=== PATIENT | male | born 1965 | race Caucasian/White ===

== ENCOUNTER 2020-08-29 10:27 | Outpatient (CLI) | payer OTHER, SELFPAY | END 2020-08-29 10:28 | disposition home or self-care (01) | LOC: CHSCOVIDVC 10:27 | PROVIDERS: PCP Internal Medicine | DX: Z23 Encounter for immunization (principal) | CPT/HCPCS: 0011A; 91301 ==

== ENCOUNTER 2020-09-26 10:27 | Outpatient (CLI) | payer OTHER, SELFPAY | END 2020-09-26 10:28 | disposition home or self-care (01) | LOC: CHSCOVIDVC 10:27 | PROVIDERS: PCP Internal Medicine | DX: Z23 Encounter for immunization (principal) | CPT/HCPCS: 0012A; 91301 ==

== ENCOUNTER → 2023-05-23 14:04 | Outpatient (CLI) | payer OTHER, SELFPAY ==
--- NOTE | ~2023-05-23 | XR_ITS ---
Cervical Spine: AP, lateral, open-mouth views Clinical History: Pain Findings: There is mild reversal normal cervical lordosis. No fracture or sublocation. There is moder ate degenerative disc narrowing from C3 through C7. There is mild facet arthropathy. Pre-vertebral so ft tissues are unremarkable. Impression: Mild degenerative spondylosis with mild reversal normal cervical lordosis. Reviewed, dictated and finalized at [facility]. S PULLER Impression: Mild degenerative spondylosis with mild reversal normal cervical lordosis.
== END ==
PROVIDERS: PCP Nurse Practitioner Family; Visit Provider Nurse Practitioner Family
DX: M43.02 Spondylolysis, cervical region (principal); M40.50 Lordosis, unspecified, site unspecified
CPT/HCPCS: 72040

== ENCOUNTER 2023-06-26 15:42 | Outpatient (RCR) | payer OTHER, SELFPAY ==
--- NOTE | 2023-06-26 16:57 | OPREHPOC ---
Outpatient Therapy Plan of Care This is a Multidisciplinary Plan of Care that may contain components documented by all disciplines (PT, OT, and ST.) PT Problem 1 PT Problem #1 Knowledge Deficit PT Goal 1 Goal Patient to demonstrate independence with HEP Target Visit 5 PT Problem 2 PT Problem #2 Pain PT Goal 1 Goal 1. Patient to report highest pain at 1/10 2. Patient to report ability to sleep with disturbance due to neck or shoulder pain Target Visit 10 PT Problem 3 PT Problem #3 Impaired Strength PT Goal 1 Goal Patient to demonstrate 5/5 R shoulder strength to return to dumping trash at PLOF Target Visit 10 PT Problem 4 PT Problem #4 Impaired Functional Mobil PT Goal 1 Goal 1. Patient to deny numbness when laying down or sitting for prolonged periods 2. Patient to score less than 10% disability on Quick Dash 3. patient to report ability to complete house hold tasks at PLOF Target Visit 10
--- NOTE | 2023-06-26 16:57 | PTOPEVAL1 ---
Assessment and note entered by Meagan Barahona DPT Evaluation Information Assessment Status Evaluation Diagnosis neck pain, R shoulder pain Onset 06/19/23 Subjective Information Patient reports about 3 weeks ago he woke up with a stiff neck and since then has had neck pain and R UE pain. He reports that arm pain is usually when he lays down and feel like a deep ache with some numbness into the forearm that goes away when he moves. He reports he is having difficulty with sleeping, dumping trash cans and reaching overhead for house hold tasks. 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 He denies headaches. He did have a neck x-ray that showed spondylitis. He does not have to follow up with MD unless pain persists. Reported Pain Level Pain Score 0,0: Self Report Assessment PT Clinical Summary Mr. Roca is a 58 year old male who presents to PT with neck and R shoulder pain. He demonstrates tenderness to B upper traps, weakness of the R shoulder and impaired posture limiting his ability to sleep, reach over head for house hold tasks and dump trash. He would benefit from skilled PT to address impairments and return to [facility]. Plan of Care Interventions Electrical Stimulation,Hot Pack/Cold Pack,Manual Therapy,Mechanical Traction,Neuro Re-education, Patient/Caregiver Educati,Therapeutic Activities, Therapeutic Exercise PT Services Indicated Yes Treatment Frequency and 2x weekly for 10 visits Duration These treatments will address the objective and functional deficits as defined above. The patient will be advanced safely and appropriately in order for the patient to progress towards his/her prior level of function. Additional exercises will be introduced and as well as a comprehensive home exercise program upon discharge, if needed, ?to ensure carryover of functional gains achieved in the clinic. This treatment plan has been reviewed and agreement upon by the patient.
--- NOTE | 2023-07-25 15:33 | OPREHPOC ---
Outpatient Therapy Plan of Care This is a Multidisciplinary Plan of Care that may contain components documented by all disciplines (PT, OT, and ST.) PT Problem 1 PT Problem #1 Knowledge Deficit PT Goal 1 Goal Patient to demonstrate independence with HEP Target Visit 5 Progress Met PT Problem 2 PT Problem #2 Pain PT Goal 1 Goal 1. Patient to report highest pain at 1/10 2. Patient to report ability to sleep with disturbance due to neck or shoulder pain Target Visit 10 Progress Met PT Problem 3 PT Problem #3 Impaired Strength PT Goal 1 Goal Patient to demonstrate 5/5 R shoulder strength to return to dumping trash at PLOF Target Visit 10 Progress Met PT Problem 4 PT Problem #4 Impaired Functional Mobil PT Goal 1 Goal 1. Patient to deny numbness when laying down or sitting for prolonged periods 2. Patient to score less than 10% disability on Quick Dash 3. patient to report ability to complete house hold tasks at PLOF Target Visit 10 Progress Met
--- NOTE | 2023-07-25 15:33 | PTOPDC ---
Assessment and note entered by Meagan Sen DPT Evaluation Information Assessment Status Discharge Diagnosis neck pain, R shoulder pain Onset 06/19/23 Subjective Information patient reports he has had minimal pain recently. he reports no UE numbness and has been able to sleep with no disturbance due to pain. Reported Pain Level Pain Score 0,0: Self Report Pain Score 1,1: Self Report Assessment PT Clinical Summary Mr. Roca has been seen for 10 visits of skilled PT with all goals met. He was been able to return to work and house hold tasks at [employer]. He denies sleep disturbance or numbness of the UE. He is independent with HEP and is appropriate for DC at this time. Plan of Care PT Services Indicated No
== END 2023-07-25 15:34 | disposition home or self-care (01) ==
LOC: CHSPT 15:42
PROVIDERS: Visit Provider Nurse Practitioner Family
DX: M54.10 Radiculopathy, site unspecified (principal); M25.511 Pain in right shoulder
CPT/HCPCS: 97014; 97110; 97140; 97161; G0283